=== PATIENT | female | born 1990 | race African-American/Black ===

== ENCOUNTER 2016-10-17 01:30 | Inpatient (IN) ==
[2016-10-17] MEDS ORDERED: FAMOTIDINE 20 MG/2 ML VIAL IV ONE ×2 (01:52→12:00)
[2016-10-17] MEDS ORDERED: CITRIC ACID/SODIUM CITRATE 30 ML UDCUP PO ONE ×2 (01:52→12:00)
[2016-10-17] MEDS ORDERED: ceFAZolin 2,000 MG in PREMIX 1 EACH IV ONE ×2 (01:52→12:00)
[2016-10-17] MEDS ORDERED: OXYTOCIN/LR 30 UNIT/1,000 ML BAG IV PRN (01:55)
[2016-10-17] MEDS ORDERED: OXYTOCIN 10 UNIT/ML VIAL IM PRN (01:57)
[2016-10-17] MEDS: LACTATED RINGERS 1,000 ML IV SCH ×4 (02:20→17:08)
[2016-10-17 02:45] LABS: Basophils % 0.1 % (0.0-0.8); Eosinophils # 0.1 10*3/uL (0.0-0.87); Eosinophils % 0.7 % (0.00-10.9); Hematocrit 34.8 VOL% (35.7-47.0); Hemoglobin 11.5 GM/DL (12.0-16.0); Immature Granulocytes % 0.6 %; Immature Granulocytes Absolute 0.05 #; Lymphocytes % 22.3 % (21.3-54.2); Mean Corpuscular Hemoglobin 27 PG (27-34); Mean Corpuscular Volume 82.5 FL (87-102); Mean Platelet Volume 10.9 FL (9.6-12.0); Monocytes # 0.7 10*3/uL (0.11-0.8); Monocytes % 7.9 % (1.7-12.7); Neutrophils # 6.2 10*3/uL (1.4-7.4); Neutrophils % 68.4 % (38.7-73.9); Platelet Count 334 T/CUMM (130-400); Red Blood Count 4.22 MC/CUMM (3.8-5.5); Red Cell Distribution Width 13.3 % (9.3-17.3); White Blood Count 9.1 T/CUMM (4-12)
[2016-10-17 03:11] LABS: Alanine Aminotransferase 12 U/L (13-56); Albumin 2.4 G/DL (3.4-5.0); Alkaline Phosphatase 238 U/L (45-117); Aspartate Amino Transferase 14 U/L (0-37); Bilirubin,Total < 0.39 MG/DL (0.2-1.0); Blood Urea Nitrogen 5 MG/DL (7-18); Calcium 9.5 MG/DL (8.5-10.1); Glucose 75 MG/DL (74-106); Osmolality,Calculated 272.5 MOS/KG (273-304); Sodium 139 MMOL/L (136-145); Total Protein 6.4 G/DL (6.4-8.3)
[2016-10-17] MEDS ORDERED: LACTATED RINGERS 1,000 ML IV ONE (09:07)
--- NOTE | 2016-10-17 11:20 | OB/GYN History & Physical ---
History of Present Illness Chief complaint: Repeat section, EDC is 10/23/2016 History of present illness: Ms. Levin is a 26 year old female 26-year-old female 2 para 1 previous ECF section for abruptio placenta. Presents at this time for repeat section risks benefits are discussed she is in full agreement. heart tones are category 1 and she is at exactly 39 weeks gestation. Home Medications Medication Instructions Recorded Confirmed Type Vits #90/Iron Fum/FA 1 tablet PO DAILY 10/17/16 10/17/16 History [ Formula Tablet] Allergies Allergy/AdvReac Type Severity Reaction Status Date / Time No Known Allergies Allergy Verified 10/17/16 01:52 Medical,Surgical,& Family Hx - Medical History Neurology: No history of: Seizures Reproductive: History of: Complication (PLACENTAL ABRUPTION) No history of: Ectopic - Surgical History Reproductive Surgeries: Surgical HX of;: Section - Family History Family History: Reports;: Family Hypertension (PARENTS) Denies;: Family Anesthesia Reaction, Family Cancer, Family Diabetes, Family Heart Disease, Family Hematology, Family Psychiatric Problems, Family Stroke, Additional Family History - Social History Smoking Status: Never smoker Frequency of Alcohol Use: None Type of Drug Use: None 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 - Constitutional Vitals: Vital Signs Temp Pulse Resp BP 10/17/16 08:00 97.6 F 95 H 20 133/87 10/17/16 04:00 98.7 F 106 H 18 129/58 General appearance: no acute distress - Antepartum / Post Antepartum Exam Cervix - Dilatation: Thick and closed - Head Head exam: Present: normal inspection - Eye Eye exam: Present: EOMI Pupils: Present: CARA - ENT ENT exam: Present: normal exam - Neck Neck exam: Present: normal inspection - Respiratory Respiratory exam: Present: clear to auscultation bilaterally - Breast Breasts: as per HPI Menstruation: as per HPI - Cardiovascular Cardiovascular exam: Present: regular rate and rhythm - GI/Abdominal GI/Abdominal exam: Present: normal bowel sounds - Extremities Exam Extremities exam: Present: normal inspection - Back Exam Back exam: Present: normal inspection - Neurological Exam Neurological exam: Present: alert - Psychiatric Psychiatric exam: Present: normal affect - Skin Skin exam: Present: normal color Assessment and Plan (1) Status post repeat low transverse section Status: Acute Assessment and plan: Plan is to undergo a repeat section, heart tones well within normal limits, no contractions at this time, patient is exactly 39 weeks gestation Current Visit: Yes Results - Labs CBC & BMP: 10/17/16 02:14 10/17/16 02:14
[2016-10-17] MEDS ORDERED: ONDANSETRON 4 MG/2 ML VIAL ONE (12:39)
[2016-10-17 13:11] LABS: Cord Arterial Blood HCO3 20.8 MMOL/L
[2016-10-17 13:14] LABS: Cord Venous Blood HCO3 20.9 MMOL/L; Cord Venous Blood PO2 39.1
[2016-10-17 13:18] LABS: Apearance,Urine Slightly Hazy (Clear); Bacteria,Urine Occasional /HPF (Few); Bilirubin,Urine Negative (Negative); Blood, Urine Negative (Negative); Glucose,Urine (UA) Negative (Negative); Ketones,Urine 20 mg/dL (Negative); Mucus,Urine Occasional /LPF (Occasional); Nitrite,Urine Negative (Negative); Protein,Urine Negative; Squamous Epithelial Cell,Urine Occasional /HPF (0-10); Urine Color Yellow (Yellow); Urine Specific Gravity 1.006 (1.001-1.035); Urine Urobilinogen < 2.0 EU/DL (0.2-1.0); WBC,Urine 16 /HPF (0-6)
[2016-10-17] MEDS ORDERED: ACETAMINOPHEN 325 MG TABLET PO PRN (13:24)
[2016-10-17] MEDS ORDERED: OXYTOCIN/LR 20 UNIT/1,000 ML BAG IV ONE ×2 (13:24→19:05)
[2016-10-17] MEDS ORDERED: RHO(D) IMMUNE GLOBULIN 300 MCG SYRINGE IM ONE (13:24)
[2016-10-17] MEDS ORDERED: ONDANSETRON 4 MG/2 ML VIAL IV PRN (13:24)
--- NOTE | 2016-10-17 13:24 | Operative Note ---
Date of procedure: 10/17/16 Procedure: Preoperative diagnosis: Repeat section 39 weeks Postoperative diagnosis: Same Anesthesia:[] Regional anesthesia Estimated blood loss: [] 300 cc Surgeon: Dr. Pham Findings: [] Live female born at 1254, 6 lbs. 11 oz., Apgars was 8 at 1 minute and 8 at 5 minutes Complications: None Procedure: Low transverse section The patient was taken to the operating suite heart tones were obtained prior to and after regional anesthesia was obtained. She was placed in supine position her abdomen was prepped and draped in usual manner for major abdominal surgery. Through an abdominal incision the skin, subcutaneous, fascial layer and peritoneal the abdomen was entered. The bladder flap was created and a low transverse incision was made.. Fluid was clear and normal amount X, Apgars, the placenta was delivered and sent to lab for further evaluation. Injected with intrauterine Pitocin. The first layer of the uterus was closed with #1 Vicryl in a continuous locking manner. Close to imbricate the first layer with #1 Vicryl. The peritoneum was approximated with #2-0 Vicryl.[] All the last sponges and instruments were accounted for -2.) #2-0 Vicryl. Fascia was approximated with #0-0 Maxon.. The skin was approximated with lexx. She tolerated procedure well and was taken to recovery room in stable condition. Surgeon / Physician: Eugenio Pham Results - Labs CBC & BMP: 10/17/16 02:14 10/17/16 02:14 Discharge Plan - Discharge Medications No Action Vits #90/Iron Fum/FA [ Formula Tablet] 1 tablet PO DAILY - Follow Up or Referral - Forms/Instructions
--- NOTE | 2016-10-17 13:30 | Anesthesia Post-Op ---
Anesthesia Post OP - Post Ansesthetic Evaluation Patient seen in post op: Yes Resp: within normal limits CV: within normal limits Mental: within normal limits Temp: within normal limits [id number]: within normal limits Nausea and Vomiting: within normal limits Pain: within normal limits
[2016-10-17] MEDS ORDERED: MORPHINE 10 MG/10 ML VIAL ONE (13:32)
[2016-10-17] MEDS ORDERED: fentaNYL 100 MCG/2 ML VIAL ONE (13:32)
[2016-10-17] MEDS ORDERED: PROMETHAZINE 25 MG/1 ML VIAL IM PRN (18:53)
[2016-10-17] MEDS: DOCUSATE SODIUM 100 MG CAPSULE PO SCH (21:06)
[2016-10-17 21:50] LABS: Basophils % 0.2 % (0.0-0.8); Hematocrit 33.8 VOL% (35.7-47.0); Hemoglobin 11.3 GM/DL (12.0-16.0); Immature Granulocytes % 0.6 %; Immature Granulocytes Absolute 0.07 #; Lymphocytes # 1.3 10*3/uL (1.4-4.0); Lymphocytes % 11.5 % (21.3-54.2); Mean Corpuscular HGB Conc 33.4 GM/DL (32-36); Mean Corpuscular Hemoglobin 28 PG (27-34); Mean Corpuscular Volume 82.4 FL (87-102); Mean Platelet Volume 10.8 FL (9.6-12.0); Monocytes # 0.9 10*3/uL (0.11-0.8); Monocytes % 7.6 % (1.7-12.7); Neutrophils # 9.2 10*3/uL (1.4-7.4); Neutrophils % 80.1 % (38.7-73.9); Platelet Count 304 T/CUMM (130-400); Red Cell Distribution Width 13.2 % (9.3-17.3); White Blood Count 11.5 T/CUMM (4-12)
[2016-10-18] MEDS: LACTATED RINGERS 1,000 ML IV SCH (03:55)
[2016-10-18] MEDS ORDERED: diphenhydrAMINE CAP 25 MG CAPSULE PO PRN (05:09)
[2016-10-18 06:10] LABS: Basophils % 0.2 % (0.0-0.8); Eosinophils % 0.3 % (0.00-10.9); Hemoglobin 10.6 GM/DL (12.0-16.0); Immature Granulocytes % 0.5 %; Immature Granulocytes Absolute 0.05 #; Lymphocytes # 1.1 10*3/uL (1.4-4.0); Lymphocytes % 11.6 % (21.3-54.2); Mean Corpuscular HGB Conc 33.1 GM/DL (32-36); Mean Corpuscular Hemoglobin 27 PG (27-34); Mean Corpuscular Volume 81.6 FL (87-102); Mean Platelet Volume 10.9 FL (9.6-12.0); Monocytes # 0.8 10*3/uL (0.11-0.8); Monocytes % 8.6 % (1.7-12.7); Neutrophils # 7.2 10*3/uL (1.4-7.4); Neutrophils % 78.8 % (38.7-73.9); Platelet Count 302 T/CUMM (130-400); Red Blood Count 3.92 MC/CUMM (3.8-5.5); Red Cell Distribution Width 13.4 % (9.3-17.3); White Blood Count 9.2 T/CUMM (4-12)
[2016-10-18] MEDS: DOCUSATE SODIUM 100 MG CAPSULE PO SCH ×2 (08:54→21:25)
[2016-10-18] MEDS: MULTIVITAMIN (PRENATAL) TABLET PO SCH (08:54)
[2016-10-18] MEDS: IBUPROFEN 800 MG TABLET PO PRN ×2 (10:04→20:00)
[2016-10-18] MEDS: MAGNESIUM HYDROXIDE SUSP 30 ML UDCUP PO PRN ×2 (10:59→21:25)
[2016-10-18] MEDS: SIMETHICONE CHEW 80 MG TABLET PO PRN ×2 (10:59→21:25)
--- NOTE | 2016-10-18 15:21 | OB/GYN Progress Note ---
Assessment and Plan (1) Previous section Status: Acute Current Visit: Yes (2) Status post repeat low transverse section Status: Acute Assessment and plan: Initiate routine postop orders. 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 Bonding well with infant. Exam API DEVELOPER - Constitutional Vitals: Vital Signs Temp Pulse Resp BP Pulse Ox 10/18/16 11:31 98.4 F 96 H 20 135/68 96 10/18/16 07:29 98.7 F 96 H 18 122/55 96 10/18/16 03:55 97.9 F 90 18 129/71 97 10/18/16 02:05 20 10/18/16 00:05 98.4 F 99 H 20 108/60 96 10/17/16 20:00 98.5 F 85 20 125/72 96 10/17/16 19:50 98.8 F 82 20 126/60 97 10/17/16 18:23 98.1 F 97 H 18 128/60 98 10/17/16 17:50 98.0 F 105 H 18 131/57 96 10/17/16 17:20 98.0 F 108 H 18 124/51 95 10/17/16 16:50 97.8 F 98 H 18 141/62 96 10/17/16 16:00 98.0 F 108 H 18 120/60 General appearance: no acute distress - Antepartum / Post Antepartum Exam Breast: bilateral: normal Abdomen obstetrics: Present: bowel sounds normal Vulva: bilateral: normal Vagina: Present: normal moisture, discharge (Light lochia rubra) Cervix: Present: normal Uterus exam: Present: enlarged - Head Head exam: Present: normal inspection - Respiratory Respiratory exam: Present: clear to auscultation bilaterally - Cardiovascular Cardiovascular exam: Present: regular rate and rhythm - GI/Abdominal GI/Abdominal exam: Present: normal bowel sounds, soft - Extremities Exam Extremities exam: Present: normal inspection - Back Exam Back exam: Present: normal inspection - Neurological Exam Neurological exam: Present: alert, oriented X3 - Psychiatric Psychiatric exam: Present: normal affect, normal mood - Skin Skin exam: Present: normal color, warm Results - Labs CBC & BMP: 10/18/16 05:43 10/17/16 02:14
[2016-10-19 07:51] VITALS: BP 128/73
[2016-10-19] MEDS: DOCUSATE SODIUM 100 MG CAPSULE PO SCH (08:00)
[2016-10-19] MEDS: MULTIVITAMIN (PRENATAL) TABLET PO SCH (08:00)
[2016-10-19] MEDS: IBUPROFEN 800 MG TABLET PO PRN (08:00)
--- NOTE | 2016-10-19 10:29 | Discharge Summary ---
Hospital Course - Hospital Course Hospital Course: Ms Levin presented for repeat section due to previous section. The patient subsequently did was delivered via a viable infant. She has followed a normal postoperative course and she has done well. Her bleeding is minimal with no odor. Her fundus is firm and midline. Her incision is well approximated without signs of infection. She is voiding well without difficulty. Her bowel sounds are positive and she has had a normal bowel movement. She is bonding well with her infant. She will be discharged home prescriptions for pain and a follow-up appointment in our office. Diagnosis - Discharge Diagnosis (1) Previous section Status: Acute (2) Status post repeat low transverse section Status: Acute Specialty Discharge - Follow Up or Referrals Follow up with: Eugenio Pham MD [Physician] - 2 Weeks Discharge Plan - Discharge Data Disposition: Disch To Home/Self Care Condition at Discharge: Stable Discharge Diet: advance to your usual diet Activity: increase activity as tolerated, no lifting, no prolonged standing Hygiene: may shower Weight Bearing at Discharge: partial weight bearing Driving: not until seen by doctor Contact your physician if you experience:: fever over 101, pain uncontrolled by pain medications - Discharge Medications New Ibuprofen Tab [Motrin Tab] 800 mg PO Q8H PRN #30 tablet PRN Reason: Pain Severe (8-10) HYDROcodone/ACETAMIN 5-325 [[place] 5-325] 2 tablet PO Q4H PRN #30 tablet PRN Reason: Pain Moderate (4-7) No Action Vits #90/Iron Fum/FA [ Formula Tablet] 1 tablet PO DAILY - Follow Up or Referral Follow Up: Eugenio Pham MD [Physician] - - Forms/Instructions Instructions: Section (DC), Depression (GEN), Surgical Site Infections (GEN), Bleeding (DC) Exam - Constitutional Vitals: Period Temp Pulse Resp BP Sys/Verdugo Pulse Ox Last 24 Hr 97.6 F-98.8 F 90-108 18-20 114-135/60-73 96-98 General appearance: no acute distress - Head Head exam: Present: normal inspection - Respiratory Respiratory exam: Present: clear to auscultation bilaterally - Cardiovascular Cardiovascular exam: Present: regular rate and rhythm - GI/Abdominal GI/Abdominal exam: Present: normal bowel sounds, soft - Extremities Exam Extremities exam: Present: normal inspection - Back Exam Back exam: Present: normal inspection - Neurological Exam Neurological exam: Present: alert, oriented X3 - Psychiatric Psychiatric exam: Present: normal affect, normal mood - Skin Skin exam: Present: normal color, warm Discharge Results Procedures and tests throughout hospitalization: Pending Orders 10/17/16 Urine Culture Routine Labs on day of discharge: Preliminary micro results at discharge 10/17/16 Unknown Urine Culture - Preliminary Urine,Clean Catch Gram Negative Rods Gram Negative Rods#2 DS: Provider Date of admission: 10/17/16 01:52 Primary care physician: Nonstaff Physician Attending physician on admission: Eugenio Pham MD Consults: 10/17/16 01:52 Consult to Anesthesiology [CONS] Routine Consulting Provider: Reason for Anesthesiology: Pre-op Clearance 10/17/16 13:25 Consult to Robotic Weld Technician [CONS] Routine Consult Robotic Weld Technician: Breast Feeding Discharging clinician: Aury Jane CNM Expected date of discharge: 10/19/16
[2016-10-19] MEDS ORDERED: DIPH/TET/ACEL PERT BOOSTER VACCINE 0.5 ML VIAL IM ONE (11:25)
== END 2016-10-19 12:10 | disposition home or self-care (01) | DRG 766 ==
LOC: N.LDOUT 01:30 → N.LD 01:36 → N.OB 16:44
PROVIDERS: ADMIT Obstetrics & Gynecology; ATTEND Obstetrics & Gynecology
PROC: LDCSECT (ICD-10-PCS; 2016-10-17 11:00)